=== PATIENT | male | born 1995 ===

== ENCOUNTER 2023-10-15 14:34 | Emergency (ER) | payer MEDICAID ==
[~2023-10-15] VITALS: Ht 175.3 cm; Wt 84.1 kg
[2023-10-15 15:32] VITALS: TEMP 98.6
[2023-10-15] MEDS: LIDOCAINE 1% 10 ML VIAL SQ ONE (15:57)
[2023-10-15] MEDS: PERTUSS(ACELL),DIPH,TET/PF 0.5 ML SYRINGE [ADULT] IM. ONE (16:00)
[2023-10-15 18:08] VITALS: BP 110/58; PULSE 72; RESP 18; O2SAT 95
== END 2023-10-15 19:10 | disposition home or self-care (01) ==
LOC: EMS 14:34
DX: S01.111A Laceration without foreign body of right eyelid and periocular area, initial encounter (principal); R51.9 Headache, unspecified; M54.2 Cervicalgia; F10.129 Alcohol abuse with intoxication, unspecified; V18.2XXA Unspecified pedal cyclist injured in noncollision transport accident in nontraffic accident, initial encounter; Y93.89 Activity, other specified; Y92.89 Other specified places as the place of occurrence of the external cause; Y99.8 Other external cause status; Y90.6 Blood alcohol level of 120-199 mg/100 ml
CPT/HCPCS: 99285; 70450; 72125; 90715; 90471; 12011; J3490